=== PATIENT | female | born 2005 | race Caucasian/White ===

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

== ENCOUNTER → 2023-06-04 | Outpatient (CLI) | payer OTHER ==
[2023-06-04 19:23] LABS: Free Thyroxine 1.06 ng/dL (0.70-1.60)
[2023-06-04 19:25] LABS: Thyroid Stimulating Hormone 3.57 uIU/mL (0.360-4.800); Triiodothyronine, Free 3.68 pg/mL (2.18-3.98)
[2023-06-06 00:10] LABS: CHLAMYDIA TRACHOMATIS, NAA Negative (Negative)
== END ==
LOC: LAB SHORT 17:20 → LAB 17:20
PROVIDERS: Obstetrics & Gynecology
DX: Z11.3 Encounter for screening for infections with a predominantly sexual mode of transmission (principal); E03.8 Other specified hypothyroidism
CPT/HCPCS: 84439; 84443; 84481; 86376; 87491; 87591

== ENCOUNTER 2023-12-15 08:35 | Inpatient (IN) | payer OTHER ==
[~2023-12-15] VITALS: Ht 160 cm; Wt 134.5 kg
[2023-12-15] VITALS (24 sets, daily range): BP systolic 106–163; BP diastolic 58–88
[2023-12-15] MEDS ORDERED: Lidocaine HCl 1% 30 ML SDV XX SCH (09:00)
[2023-12-15] MEDS ORDERED: Oxytocin 10 Unit / ML Vial IM SCH (09:00)
[2023-12-15] MEDS ORDERED: LR Oxytocin 20 Units 1,000 ML IV SCH ×2 (09:00→19:20)
[2023-12-15] MEDS ORDERED: Methylergonovine Maleate 0.2MG / ML 1ML Amp IM SCH (09:00)
[2023-12-15] MEDS ORDERED: Castor Oil 59.146 ML BTL TOP SCH (09:00)
[2023-12-15] MEDS ORDERED: Bupivacaine HCl 2.5 MG/ML 10ML P/F Injection XX SCH (09:00)
[2023-12-15] MEDS ORDERED: Misoprostol 200 MCG Tab PR SCH (09:00)
[2023-12-15] MEDS ORDERED: Lactated Ringer's 1,000 ML IV PRN (09:00)
[2023-12-15] MEDS ORDERED: Bupivacaine 0.5% HCl 5 MG/ML 30MLVIAL XX SCH (09:00)
[2023-12-15] MEDS ORDERED: Lactated Ringer's 1,000 ML IV SCH ×2 (09:05)
[2023-12-15] MEDS ORDERED: FentaNYL 2mcg/ml-Bup 0.1% Epd 250 ML EPI PRN (09:05)
[2023-12-15] MEDS ORDERED: ePHEDrine Sulfate 50 MG/ML 1ML Injection XX PRN (09:05)
[2023-12-15] MEDS ORDERED: FentaNYL Citrate 50 MCG/ML 2 ML Injection IV PRN (09:10)
[2023-12-15] MEDS ORDERED: Ondansetron HCl 2 MG / ML 2ML Vial IV PRN (09:10)
[2023-12-15] MEDS ORDERED: Ampicillin Sod 2,000 MG in NS 100 ML IV STA (09:11)
[2023-12-15] MEDS ORDERED: FAMO20 (09:21)
[2023-12-15] MEDS ORDERED: ONDA4ODT (09:21)
[2023-12-15] MEDS ORDERED: PRENATAL TABLE1 EAC2 PO (09:21)
[2023-12-15 09:41] LABS: BASOPHILS ABSOLUTE AUTO 0.03 K/mm3 (0.00-0.23); BASOPHILS PERCENT AUTO 0 % (0-2); EOSINOPHILS ABSOLUTE AUTO 0.09 K/mm3 (0.00-0.68); EOSINOPHILS PERCENT AUTO 1 % (0-6); Hematocrit 32.1 % (33.0-51.0); Hemoglobin 10.6 g/dL (11.5-16.0); IMMATURE GRAN ABSOLUTE AUTO 0.06 K/mm3 (0.00-0.10); IMMATURE GRAN PERCENT AUTO 1 % (0-1); LYMPHOCYTES ABSOLUTE AUTO 1.97 K/mm3 (0.84-5.20); LYMPHOCYTES PERCENT AUTO 19 % (21-46); MONOCYTES ABSOLUTE AUTO 0.73 K/mm3 (0.16-1.47); MONOCYTES PERCENT AUTO 7 % (4-13); Mean Corpuscular HGB 25.7 pg (26.0-34.0); Mean Corpuscular Volume 78 fL (80-100); Mean Platelet Volume 11.1 fL (9.1-12.4); NEUTROPHILS ABSOLUTE AUTO 7.53 K/mm3 (1.96-9.15); NEUTROPHILS PERCENT AUTO 72 % (41-73); Platelet Count 252 K/mm3 (150-400); RDW Coefficient Variation 14.1 % (11.7-14.2); RDW Standard Deviation 39.5 fL (35.1-46.3); Red Blood Cell Count 4.13 M/mm3 (3.80-5.20); White Blood Cell Count 10.41 K/mm3 (4.00-11.30)
[2023-12-15] MEDS ORDERED: Ampicillin Sod 1,000 MG in NS 100 ML IV SCH (13:00)
[2023-12-15] MEDS ORDERED: Lactated Ringer's 1,000 ML IV ONE (21:00)
[2023-12-15] MEDS ORDERED: Calcium Carbonate 500 MG Tab Chew PO PRN (22:25)
[2023-12-16] VITALS (28 sets, daily range): BP systolic 107–171; BP diastolic 56–92
[2023-12-16] MEDS ORDERED: Lactated Ringer's 1,000 ML IV ONE ×2 (04:48→16:31)
[2023-12-16] MEDS ORDERED: Ondansetron HCl 2 MG / ML 2ML Vial IV PRN ×3 (07:45→17:20)
[2023-12-16] MEDS ORDERED: Lactated Ringer's 1,000 ML IV SCH ×3 (09:00→17:15)
[2023-12-16] MEDS ORDERED: Azithromycin 500 MG in NS 250 ML IV SCH (14:55)
[2023-12-16] MEDS ORDERED: CeFAZolin Sodium 3,000 MG in NS 100 ML IV SCH (14:55)
[2023-12-16] MEDS ORDERED: Metoclopramide HCl 5MG / ML 2ML Vial ONE (15:05)
[2023-12-16] MEDS ORDERED: FentaNYL Citrate 50 MCG/ML 2 ML Injection ONE (15:10)
[2023-12-16] MEDS ORDERED: Citric Acid/Sodium Citrate 30 ML BTL ONE (15:10)
[2023-12-16] MEDS ORDERED: Lidocaine HCl 2% 10 ML SDA ONE ×2 (15:11→15:39)
[2023-12-16] MEDS ORDERED: Oxytocin 10 Unit / ML Vial ONE ×2 (15:14→16:45)
[2023-12-16] MEDS ORDERED: propofoL 0 ML IV ONE (15:30)
[2023-12-16] MEDS ORDERED: Lidocaine HCl 2% Jelly 120MG/6ML SYR (20MG PER ML) ONE (15:37)
[2023-12-16] MEDS ORDERED: Phenylephrine HCl 100 MCG/ML-NS 10MLSYR (1MG/10ML) ONE (15:45)
[2023-12-16] MEDS ORDERED: ePHEDrine Sulfate 50 MG/ML 1ML Injection ONE (15:46)
--- NOTE | 2023-12-16 16:09 | NUR ---
12/16/23 1609 Fay Ordoñez 1539 PT ARRIVE TO [facility] OR WITH NORTH CATHETER INTACT, NO URINE IN BAG CURRENTLY EPIDURAL HAD BEEN DOSED UP PRIOR TO COMING INTO OR
[2023-12-16] MEDS ORDERED: FentaNYL Citrate 50 MCG/ML 2 ML Injection IV PRN ×3 (16:25)
[2023-12-16] MEDS ORDERED: Ketorolac Tromethamine 30mg Vial ONE (16:50)
[2023-12-16] MEDS ORDERED: LR Oxytocin 20 Units 1,000 ML IV SCH ×2 (17:10→17:15)
[2023-12-16] MEDS ORDERED: Promethazine HCl 25 MG Supp PR PRN (17:15)
[2023-12-16] MEDS ORDERED: Simethicone 80 MG Chew PO PRN (17:15)
[2023-12-16] MEDS ORDERED: Rho(D) Immune Globulin 300 MCG / SYR IM ONE (17:15)
[2023-12-16] MEDS ORDERED: DiphenhydrAMINE HCL 25 MG Cap PO PRN (17:15)
[2023-12-16] MEDS ORDERED: Lanolin Cream TOP PRN (17:20)
[2023-12-16] MEDS ORDERED: Misoprostol 200 MCG Tab PR PRN (17:20)
[2023-12-16] MEDS ORDERED: Morphine Sulfate 4 MG/1 ML Injection IV PRN (17:20)
[2023-12-16] MEDS ORDERED: Methylergonovine Maleate 0.2MG / ML 1ML Amp IM PRN (17:25)
[2023-12-16] MEDS ORDERED: Magnesium Hydroxide Conc 10 ML UDC PO PRN (17:25)
[2023-12-16] MEDS ORDERED: Acetaminophen 500 MG Tab PO PRN (17:25)
[2023-12-16] MEDS ORDERED: OxyCODONE HCL 5 MG TAB PO PRN (17:25)
[2023-12-16] MEDS ORDERED: Promethazine HCl 25 MG Tab PO PRN (17:25)
[2023-12-16] MEDS ORDERED: Carboprost Tromethamine 250 MCG/ML 1ML Amp IM PRN (17:25)
[2023-12-16] MEDS ORDERED: Metoclopramide HCl 10 MG Tab PO PRN (17:25)
[2023-12-16] MEDS ORDERED: Ketorolac Tromethamine 30mg Vial IV SCH (18:00)
[2023-12-16] MEDS ORDERED: Docusate Sodium 100 MG Cap PO SCH (21:00)
[2023-12-16] MEDS ORDERED: Ketorolac Tromethamine 30mg Vial IV PRN (23:20)
[2023-12-17] MEDS ORDERED: Ibuprofen 400 MG Tab PO SCH
[2023-12-17 00:45] VITALS: BP 121/83
[2023-12-17 04:39] VITALS: BP 124/59
[2023-12-17 08:18] VITALS: BP 142/75
[2023-12-17 08:20] LABS: BASOPHILS ABSOLUTE AUTO 0.02 K/mm3 (0.00-0.23); BASOPHILS PERCENT AUTO 0 % (0-2); EOSINOPHILS ABSOLUTE AUTO 0.01 K/mm3 (0.00-0.68); EOSINOPHILS PERCENT AUTO 0 % (0-6); Hematocrit 24.2 % (33.0-51.0); Hemoglobin 8.1 g/dL (11.5-16.0); IMMATURE GRAN ABSOLUTE AUTO 0.09 K/mm3 (0.00-0.10); IMMATURE GRAN PERCENT AUTO 1 % (0-1); LYMPHOCYTES ABSOLUTE AUTO 1.48 K/mm3 (0.84-5.20); LYMPHOCYTES PERCENT AUTO 9 % (21-46); MONOCYTES ABSOLUTE AUTO 0.98 K/mm3 (0.16-1.47); MONOCYTES PERCENT AUTO 6 % (4-13); Mean Corpuscular HGB 26.2 pg (26.0-34.0); Mean Corpuscular HGB Conc 33.5 g/dL (31.5-36.5); Mean Corpuscular Volume 78 fL (80-100); Mean Platelet Volume 11.7 fL (9.1-12.4); NEUTROPHILS ABSOLUTE AUTO 14.39 K/mm3 (1.96-9.15); NEUTROPHILS PERCENT AUTO 85 % (41-73); Platelet Count 230 K/mm3 (150-400); RDW Coefficient Variation 14.4 % (11.7-14.2); RDW Standard Deviation 40.1 fL (35.1-46.3); Red Blood Cell Count 3.09 M/mm3 (3.80-5.20); White Blood Cell Count 16.97 K/mm3 (4.00-11.30)
[2023-12-17] MEDS ORDERED: Prenatal Vit/FE Fumarate/FA 1 Tab PO SCH (09:00)
[2023-12-17] MEDS ORDERED: Citric Acid/Sodium Citrate 30 ML BTL PO ONE (11:35)
[2023-12-17 12:02] VITALS: BP 133/72
[2023-12-17] MEDS ORDERED: Ferrous Sulfate 325 MG Tab PO SCH (15:00)
[2023-12-17 17:01] VITALS: BP 143/76
[2023-12-17 21:43] VITALS: BP 140/69
[2023-12-17] MEDS ORDERED: Ibuprofen 400 MG Tab PO PRN (23:20)
[2023-12-18 00:27] VITALS: BP 132/79
[2023-12-18 05:07] VITALS: BP 139/67
[2023-12-18 07:24] VITALS: BP 140/72
[2023-12-18 07:38] VITALS: BP 142/69
--- NOTE | 2023-12-18 08:55 | NUR ---
0715: PT UP OOB TO [facility]. REPORTS FEELING LIGHT HEADED AND DIZZY. SIG OTHER VERY HELPFUL IN PT CARE AND ASSISTING PT BACK TO BED WITH RN ASSIST. PT TO BED. VS WNL. PT REASSURED AND REPORTS FEELING BETTER. PT REPORTS SHE FEELS LIKE MAYBE SHE GOT TOO COLD. WARM BLANKETS APPLIED.
[2023-12-18] MEDS ORDERED: Ferrous Sulfate 325 MG Tab PO SCH (09:00)
[2023-12-18 11:19] VITALS: BP 147/78
--- NOTE | 2023-12-18 11:43 | NUR ---
1110: PT AWAKEN FOR VS AND LUNCH. PT REPORTS SHE HAS BEEN ASLEEP SINCE 0800. ENCOURAGED PT TO GET UP AND FEED NB AND DISCUSSED PLAN FOR D/C.
--- NOTE | 2023-12-18 12:09 | NUR ---
PT UP AMBULATING IN ROOM, PACKING FOR D/C AND WORKING ON PAPERWORK. PT DENIES PAIN. REPORTS NO QUESTIONS OR CONCERNS ABOUT D/C INSTRUCTIONS.
--- NOTE | 2023-12-18 13:36 | NUR ---
D/C HOME IWTH BABY
--- NOTE | 2023-12-18 14:16 | NUR ---
[facility] REFERRAL FAXED
== END 2023-12-18 13:45 | disposition home or self-care (01) | DRG 787 ==
LOC: OBS 08:35 → BC 08:35 → OBS 08:52 → BC 21:10
PROVIDERS: ADMIT Obstetrics & Gynecology
PROC: 10D00Z1 Extraction of Products of Conception, Low, Open Approach (ICD-10-PCS; principal; 2023-12-16)
DX: O42.02 Full-term premature rupture of membranes, onset of labor within 24 hours of rupture (principal); D62 Acute posthemorrhagic anemia; O99.03 Anemia complicating the puerperium; Z3A.39 39 weeks gestation of pregnancy; O99.214 Obesity complicating childbirth; O99.824 Streptococcus B carrier state complicating childbirth; O36.63X0 Maternal care for excessive fetal growth, third trimester, not applicable or unspecified; O62.1 Secondary uterine inertia; Z3A.40 40 weeks gestation of pregnancy; Z37.0 Single live birth; O48.0 Post-term pregnancy; O24.420 Gestational diabetes mellitus in childbirth, diet controlled
CPT/HCPCS: 36415; 51702; 82947; 85025; 86850; 86900; 86901; 86923; A9270; J0290; J0456; J0690; J1885; J2001; J2371; J2405; J2590; J2704; J2765; J3010; J7050; J7120

== ENCOUNTER 2023-12-20 07:40 | Inpatient (IN) | payer OTHER ==
[2023-12-20] VITALS (18 sets, daily range): BP systolic 130–163; BP diastolic 68–94
[~2023-12-20] VITALS: Ht 160 cm; Wt 90.7 kg
[~2023-12-20 07:40] MED LIST changes: +FAMO20; +ONDA4ODT; +PRENATAL TABLE1 EAC2 PO
[2023-12-20 08:30] LABS: BASOPHILS ABSOLUTE AUTO 0.02 K/mm3 (0.00-0.23); BASOPHILS PERCENT AUTO 0 % (0-2); EOSINOPHILS ABSOLUTE AUTO 0.21 K/mm3 (0.00-0.68); EOSINOPHILS PERCENT AUTO 2 % (0-6); Hematocrit 23.5 % (33.0-51.0); Hemoglobin 7.5 g/dL (11.5-16.0); IMMATURE GRAN PERCENT AUTO 1 % (0-1); LYMPHOCYTES ABSOLUTE AUTO 1.51 K/mm3 (0.84-5.20); LYMPHOCYTES PERCENT AUTO 16 % (21-46); MONOCYTES ABSOLUTE AUTO 0.54 K/mm3 (0.16-1.47); MONOCYTES PERCENT AUTO 6 % (4-13); Mean Corpuscular HGB Conc 31.9 g/dL (31.5-36.5); Mean Corpuscular Volume 81 fL (80-100); Mean Platelet Volume 11.1 fL (9.1-12.4); NEUTROPHILS ABSOLUTE AUTO 7.09 K/mm3 (1.96-9.15); NEUTROPHILS PERCENT AUTO 75 % (41-73); Platelet Count 304 K/mm3 (150-400); RDW Coefficient Variation 14.6 % (11.7-14.2); RDW Standard Deviation 42.6 fL (35.1-46.3); Red Blood Cell Count 2.89 M/mm3 (3.80-5.20); White Blood Cell Count 9.47 K/mm3 (4.00-11.30)
[2023-12-20] MEDS ORDERED: Labetalol HCL 5 MG/ML 4ML Injection (Single Dose) IV ONE ×4 (08:30→11:55)
[2023-12-20 08:50] LABS: Albumin, Blood 2.2 g/dL (3.4-5.0); Albumin/Globulin Ratio 0.6 (0.8-1.8); Bilirubin, Total 0.2 mg/dL (0.1-1.0); Calcium, Blood 8.5 mg/dL (8.5-10.1); Creatinine, Blood 0.6 mg/dL (0.40-1.00); Globulin, Blood 3.9 g/dL (2.2-4.0); Magnesium, Blood 1.7 mg/dL (1.6-2.4); Potassium, Blood 3.8 mmol/L (3.5-5.5); Total Protein, Blood 6.1 g/dL (6.4-8.2)
[2023-12-20 09:06] LABS: Source, Urine Clean Catch
[2023-12-20 09:20] LABS: Appearance, Urine Hazy (Clear); Bilirubin, Urine Neg (Neg); Blood, Urine 5+ (Neg); Color, Urine Yellow (P-Yellow); Glucose Qualitative, Urine Neg (Neg); Ketones, Urine Neg (Neg); Leukocyte Esterase, Urine 1+ (Neg); Nitrite, Urine Neg (Neg); Protein, Urine 2+ (Neg); Specific Gravity, Urine 1.015 (1.003-1.022); Urobilinogen, Urine NORM (Normal)
[2023-12-20 09:59] LABS: Bacteria Mod /hpf; Red Blood Cells, Urine 50-100 /hpf (0-2); Squamous Epithelial Cells Mod /hpf (Few)
[2023-12-20 10:00] LABS: Mucus Light (0-Heavy)
[2023-12-20] MEDS ORDERED: Magnesium Sulf 2 GM/Water 50ML 50 ML IV SCH (10:05)
[2023-12-20] MEDS ORDERED: FeroSul 325 mg (65 m (11:45)
[2023-12-20] MEDS ORDERED: Lactated Ringer's 1,000 ML IV SCH (11:55)
[2023-12-20] MEDS ORDERED: Magnesium Sulfate 500 ML IV SCH (11:55)
[2023-12-20] MEDS ORDERED: Calcium Gluconate 0.465 mEq/ml 10 ml Vial IV PRN (11:55)
[2023-12-20] MEDS ORDERED: Labetalol HCL 5 MG/ML 4ML Injection (Single Dose) IV PRN ×2 (11:55)
[2023-12-20] MEDS ORDERED: NIFEdipine 30 MG TabCR ONE (12:19)
[2023-12-20] MEDS ORDERED: NIFEdipine 30 MG TabCR PO SCH ×2 (12:20→21:00)
[2023-12-20] MEDS ORDERED: ACET500 PO (12:40)
[2023-12-20] MEDS ORDERED: IBUP800 PO (12:41)
[2023-12-20] MEDS ORDERED: OXYC5 PO (12:41)
[2023-12-20] MEDS ORDERED: Acetaminophen 500 MG Tab PO PRN (12:55)
[2023-12-20] MEDS ORDERED: OxyCODONE HCL 5 MG TAB PO PRN (12:55)
[2023-12-20] MEDS ORDERED: Sod Ferric Gluc Complx/Sucrose 125 MG in NS 100 ML IV SCH (13:30)
[2023-12-20] MEDS ORDERED: Furosemide 10 MG / ML 2ML Vial IV SCH (14:00)
--- NOTE | 2023-12-20 14:05 | NUR ---
SLEEPING PT FINALLY ASLEEP AND BIOX 83-86 WHILE SLEEPING. WOKE PT UP AND SHE SAYS SHE FEELS FINE JUST STILL THE SAME OF SHORTNESS OF BREATH. WHEN AWAKE AND TALKING BIOX BACK UP TO 99% LUNG SOUNDS CLEAR. WILL UPDATE DR HADDAD.
--- NOTE | 2023-12-20 15:41 | NUR ---
PT FEELING BETTER AND HEADACHE IS GONE. GETTING UP AND DOWN TO BATHROOM INDEPENDANTLY. DENIES PAIN. VSS. LUNG SOUNDS CLEAR.
[2023-12-20] MEDS ORDERED: Ibuprofen 400 MG Tab PO SCH (16:00)
--- NOTE | 2023-12-20 17:21 | NUR ---
PT SITTING UP EATING DINNER. STATES SHE IS FEELING MUCH BETTER AND DENIES BEING SHORT OF BREATH AND ABLE TO REST WELL.
--- NOTE | 2023-12-20 19:26 | NUR ---
REPORT TO JACQUE CAMARENA. PT STILL FEELING GOOD AND HAS NO COMPLAINTS. NO KNEW ORDERS FOR THE NIGHT SO WILL CONITNUE THE MAGNESIUM 2GM/HR. STABLE.
[2023-12-20] MEDS ORDERED: Famotidine 20 MG Tab PO SCH (21:00)
--- NOTE | 2023-12-20 21:09 | NUR ---
PT REPORTS SHORTNESS OF BREATH HAS RESOLVED, INCLUDING ON AMBULATION. PT CURRENTLY -2150 ON I&O. DISCUSSED SECOND DOSE OF LASIX WITH DR. DE LA VEGA WHO GAVE OK TO HOLD SECOND DOSE.
--- NOTE | 2023-12-20 22:52 | NUR ---
PT'S OXYGEN SATURATION NOTED TO DROP TO THE LOW 90'S, HIGH 80'S WHEN SLEEPING, SNORING RESPIRATIONS NOTED. 2L VIA NC APPLIED. CONTINUOUS PULSE OX IN PLACE.
[2023-12-21] VITALS (12 sets, daily range): BP systolic 134–152; BP diastolic 69–82
[2023-12-21 06:10] LABS: BASOPHILS ABSOLUTE AUTO 0.04 K/mm3 (0.00-0.23); BASOPHILS PERCENT AUTO 0 % (0-2); EOSINOPHILS PERCENT AUTO 2 % (0-6); Hematocrit 23.2 % (33.0-51.0); Hemoglobin 7.5 g/dL (11.5-16.0); IMMATURE GRAN PERCENT AUTO 2 % (0-1); LYMPHOCYTES ABSOLUTE AUTO 1.59 K/mm3 (0.84-5.20); LYMPHOCYTES PERCENT AUTO 16 % (21-46); MONOCYTES ABSOLUTE AUTO 0.57 K/mm3 (0.16-1.47); MONOCYTES PERCENT AUTO 6 % (4-13); Mean Corpuscular HGB 25.9 pg (26.0-34.0); Mean Corpuscular HGB Conc 32.3 g/dL (31.5-36.5); Mean Corpuscular Volume 80 fL (80-100); Mean Platelet Volume 10.4 fL (9.1-12.4); NEUTROPHILS ABSOLUTE AUTO 7.23 K/mm3 (1.96-9.15); NEUTROPHILS PERCENT AUTO 74 % (41-73); Platelet Count 311 K/mm3 (150-400); RDW Coefficient Variation 14.6 % (11.7-14.2); RDW Standard Deviation 42.5 fL (35.1-46.3); White Blood Cell Count 9.83 K/mm3 (4.00-11.30)
[2023-12-21 06:33] LABS: Albumin, Blood 2.1 g/dL (3.4-5.0); Albumin/Globulin Ratio 0.6 (0.8-1.8); Bilirubin, Total 0.3 mg/dL (0.1-1.0); Bun/Creatinine Ratio 16.2 (12.0-20.0); Calcium, Blood 7.3 mg/dL (8.5-10.1); Creatinine, Blood 0.68 mg/dL (0.40-1.00); Globulin, Blood 3.8 g/dL (2.2-4.0); Potassium, Blood 3.4 mmol/L (3.5-5.5); Total Protein, Blood 5.9 g/dL (6.4-8.2)
--- NOTE | 2023-12-21 06:39 | NUR ---
SHIFT SUMMARY: SOURAV IS A&OX4. PT CONTINUES TO REQUIRE SUPPLEMENTAL O2 TO MAINTAIN SATS >92%, CURRENTLY AT 5 LPM VIA NC. PT DOES REMOVE O2 WHEN SHE GETS UP TO THE BATHROOM AND DISCONNECTS CONTINUOUS PULSE OX. PT DENIES DYSPNEA OR SOB, BUT STATES THAT SHE FEELS SHE HAS MUCUS IN HER THROAT THAT NEEDS TO BE COUGHED UP, BUT SHE STATES SHE DOESN'T WANT TO COUGH D/T IT CAUSING INCREASED PAIN TO HER INCISION. EDUCATED PT ON SUPPORTING HER INCISION WITH THE ABDOMINAL BINDER AND EITHER A PILLOW OR FOLDED BLANKET PRIOR TO COUGHING. INCENTIVE SPIROMETER PROVIDED AND PT EDUCATED ON IT'S USE. SHE IS INDEPENDENT TO THE BATHROOM, DENIES ANY DIFFICULTY VOIDING. IV X 2 TO BILATERAL ARMS PATENT, SHE IS TOLERATING PO INTAKE WELL AND REPORTS ADEQUATE PAIN CONTROL WITH MEDICATIONS PER MAR. PT REMAINS IN FLUID BALANCE DEFICIT. SHE IS SITTING UP IN BED WITH THE CALL LIGHT IN REACH. PT'S BOYFRIEND AT BEDSIDE. WILL GIVE REPORT TO DAY SHIFT RN.
--- NOTE | 2023-12-21 10:45 | NUR ---
MAGNESIUM OFF AT 1040.
--- NOTE | 2023-12-21 14:16 | NUR ---
PT TOOK NASAL CANULA OFF AT 1410, ADVISED PT THAT SHE COULD LEAVE IT OFF DUE TO SPO2 BEING AT 99% AND THAT WE WOULD TRIAL HER WITHOUT IT. PT IS CURRENTLY SITTING UP IN BED, HIGH SEMI FOWLERS. DENIES SOB.
[2023-12-21] MEDS ORDERED: NIFE30ER PO (20:59)
--- NOTE | 2023-12-21 22:50 | NUR ---
DC NOTE; PT TO DC NOW. DC INSTRUCTIONS GIVEN AND PT ENCOURAGED TO ASK ANY FURTHER QUESTIONS. PT DENIES ANY FURTHER QUESTIONS. PT CONFIRMED THAT SHE HAS PICKED UP HER PERSCRIPTIONS, WELL SHE WILL BE GETTING A BLOOD PRESSURE CUFF FROM HER MOTHER. PT ALSO GIVEN A CARD WITH HER [facility] APPOINTMENT, WHICH IS Wednesday12/23/23 AND REMINDED TO ARRIVE TO [facility] 10 MINUTES EARLY.
== END 2023-12-21 22:50 | disposition home or self-care (01) | DRG 776 ==
LOC: ER 07:40 → BC 10:57
PROVIDERS: Emergency Medicine; ADMIT Obstetrics & Gynecology
DX: O14.15 Severe pre-eclampsia, complicating the puerperium (principal); D62 Acute posthemorrhagic anemia; O90.81 Anemia of the puerperium; O99.215 Obesity complicating the puerperium; R09.02 Hypoxemia; O99.893 Other specified diseases and conditions complicating puerperium; Z98.890 Other specified postprocedural states
CPT/HCPCS: 71046; 80053; 81001; 83735; 83880; 84484; 85025; 87086; 93005; 93010; 96365; 96375; 99285-25; A9270; J1940; J2916; J3475; J7120

== ENCOUNTER → 2024-02-23 | Outpatient (CLI) | payer OTHER ==
[~2024-02-23] MED LIST changes: +ACET500 PO; +FeroSul 325 mg (65 m; +IBUP800 PO; +NIFE30ER PO; +OXYC5 PO
[2024-02-25 14:20] LABS: APTIMA MEDIA TYPE Urine; C. TRACHOMATIS BY TMA Negative (Negative); N. GONORRHOEAE BY TMA Negative (Negative); SPECIMEN SOURCE Urine
== END ==
LOC: LAB 15:21 → LAB SHORT 15:21
PROVIDERS: Advanced Practice Midwife
DX: Z11.3 Encounter for screening for infections with a predominantly sexual mode of transmission (principal)
CPT/HCPCS: 87491; 87591

== ENCOUNTER → 2025-01-04 | Outpatient (CLI) | payer OTHER ==
[2025-01-05 12:32] LABS: Candida Group, PCR NOT DETECTED (NOT DETECT); Candida glabrata-krusei, PCR NOT DETECTED (NOT DETECT)
[2025-01-05 12:55] LABS: Bacterial Vaginosis PCR Positive (NEGATIVE)
== END ==
LOC: LAB SHORT 09:22 → LAB 09:22
PROVIDERS: Advanced Practice Midwife
DX: Z01.419 Encounter for gynecological examination (general) (routine) without abnormal findings (principal); N92.6 Irregular menstruation, unspecified
CPT/HCPCS: 81515